=== PATIENT | female | born 1965 | race Asian ===

== ENCOUNTER 2019-06-26 08:37 | Day surgery (SDC) | payer BC ==
[~2019-06-26] VITALS: Ht 165.1 cm; Wt 57.4 kg
[~2019-06-26 08:37] MED LIST: OMEP40CA12 PO; RANI150 PO
== END 2019-06-26 11:15 | disposition home or self-care (01) ==
LOC: ORSCSDS 08:37
PROVIDERS: Surgery
PROC: 0DBL8ZX Excision of Transverse Colon, Via Natural or Artificial Opening Endoscopic, Diagnostic (ICD-10-PCS; principal; 2019-06-26 10:00)
PROC: 0DBP8ZX Excision of Rectum, Via Natural or Artificial Opening Endoscopic, Diagnostic (ICD-10-PCS; principal; 2019-06-26 10:00)
DX: Z12.11 Encounter for screening for malignant neoplasm of colon (principal); D12.8 Benign neoplasm of rectum; K63.5 Polyp of colon; F17.210 Nicotine dependence, cigarettes, uncomplicated
CPT/HCPCS: 88305; J2704; J7120

== ENCOUNTER 2020-10-27 11:36 | Day surgery (SDC) | payer BC ==
[~2020-10-27] VITALS: Ht 162.6 cm; Wt 59.9 kg
[~2020-10-27 11:36] MED LIST changes: +MOBIC15 MG PO; +VOLTAREN ARTHRI20 GM
--- NOTE | 2020-10-27 13:37 | NUR ---
10/27/20 133Clifton Smith ABDOMEN PREPPED BY [facility]. PT HAD COPIOUS AMOUNTS OF BLACK DEBRI IN HER UMBILLICUS. THOROUGH CARE WAS TAKEN TO REMOVE ALL DEBRI.
--- NOTE | 2020-10-27 15:10 | NUR ---
10/27/20 1510 Nhung Allen PATIENT IN RECLINER, RESTING QUIETLY, C/O NAUSE, MEDICATED WITH PHENERGAN 6.25MG IV. NO C/O PAIN AT THIS TIME. VSS. WILL CONTINUE TO MONITOR.
== END 2020-10-27 16:15 | disposition home or self-care (01) ==
LOC: ORSCSDS 11:36
DX: R10.2 Pelvic and perineal pain (principal); N83.292 Other ovarian cyst, left side; N83.291 Other ovarian cyst, right side; K66.0 Peritoneal adhesions (postprocedural) (postinfection)
CPT/HCPCS: 88305; J0171; J1100; J1885; J2250; J2405; J2550; J2704; J2710; J2765; J3010; J7120

== ENCOUNTER 2022-01-08 12:21 | Day surgery (SDC) | payer BC ==
[~2022-01-08] VITALS: Ht 154.9 cm; Wt 61.0 kg
--- NOTE | 2022-01-08 14:15 | NUR ---
01/08/22 1415 Froylan Mcbride BUPIVACAINE 0.5% 30 MLS MIXED W/ 0.15 ML EPI TO MAKE BUPIVACAINE 0.5% 1:200,000 FOR INJECTION AT [facility].
== END 2022-01-08 16:10 | disposition home or self-care (01) ==
LOC: ORSCSDS 12:21
PROVIDERS: Podiatrist Foot & Ankle Surgery
PROC: 0SGH04Z Fusion of Right Tarsal Joint with Internal Fixation Device, Open Approach (ICD-10-PCS; principal; 2022-01-08 14:00)
PROC: 0QSQ04Z Reposition Right Toe Phalanx with Internal Fixation Device, Open Approach (ICD-10-PCS; principal; 2022-01-08 14:00)
DX: M20.11 Hallux valgus (acquired), right foot (principal); Z87.891 Personal history of nicotine dependence
CPT/HCPCS: C1713; C1776; J0171; J0690; J1100; J2250; J2370; J2405; J2704; J3010; J7120

== ENCOUNTER 2022-08-03 07:27 | Day surgery (SDC) | payer BC ==
[~2022-08-03] VITALS: Ht 165.1 cm; Wt 59.2 kg
--- NOTE | 2022-08-03 09:27 | NUR ---
08/03/22 0927 Froylan Mcbride ROPIVACAINE 0.5% 30 MLS MIXED W/ EPI 0.15 ML (1MG/ML) PER ORDER TO MAKE ROPIVACAINE 0.5% 1:200,000 FOR INJECTION AT [facility] BY DR SPARKS. 30 MLS INJECTED. MANAGE AWARE OF RNS MIXING.
--- NOTE | 2022-08-03 13:44 | NUR ---
08/03/22 1344 Cristobal Sandra PT REPORTED 5/10 PAIN AT TIME OF DISCHARGE, BUT DESCRIBED THE PAIN TOLERABLE AND EXPRESSED READINESS TO GO HOME.
== END 2022-08-03 11:46 | disposition home or self-care (01) ==
LOC: ORSCSDS 07:27
PROVIDERS: Podiatrist Foot & Ankle Surgery
PROC: 0SGJ04Z Fusion of Left Tarsal Joint with Internal Fixation Device, Open Approach (ICD-10-PCS; principal; 2022-08-03 09:00)
PROC: 0QSP04Z Reposition Left Metatarsal with Internal Fixation Device, Open Approach (ICD-10-PCS; principal; 2022-08-03 09:00)
DX: M21.612 Bunion of left foot (principal); K21.9 Gastro-esophageal reflux disease without esophagitis; Z87.891 Personal history of nicotine dependence
CPT/HCPCS: A9270; C1713; J0171; J0690; J1100; J2250; J2370; J2405; J2704; J2765; J2795; J3010; J7120